=== PATIENT | female | born 1990 | race Caucasian/White ===

== ENCOUNTER 2017-11-20 16:09 | Emergency (ER) | payer MEDICAID, OTHER ==
[~2017-11-20] VITALS: Ht 177.8 cm; Wt 67.0 kg
[2017-11-20] MEDS ORDERED: FLUORESCEIN SODIUM 1MG/STRIP OP ONE (17:15)
[2017-11-20] MEDS ORDERED: BALANCED SALT IRRIG SOLN 15ML IO ONE (17:15)
[2017-11-20] MEDS ORDERED: TETRACAINE 0.5% OPHTH DROPS 4ML OP ONE (17:15)
[2017-11-20 17:57] VITALS: BP 108/62
== END 2017-11-21 02:20 | disposition home or self-care (01) ==
LOC: ER 16:10
DX: H10.12 Acute atopic conjunctivitis, left eye (principal)
CPT/HCPCS: 99283